=== PATIENT | male | born 2000 | race Caucasian/White ===

== ENCOUNTER 2019-08-19 17:06 | Emergency (ER) | payer OTHER ==
[~2019-08-19] VITALS: Ht 180.3 cm; Wt 77.7 kg
[2019-08-19 17:36] LABS: AMP/METHAMP Negative (Negative); BARBITURATES Negative (Negative); BENZODIAZEPINES Negative (Negative); COCAINE Negative (Negative); METHADONE Negative (Negative); OPIATES Negative (Negative); PCP Negative (Negative)
[2019-08-19 18:00] LABS: BASOPHILS 0.4 % (0.0-2.0); HEMOGLOBIN 14.6 gm/dL (14.0-18.0); MCH 31.4 pg (26.0-34.0)
[2019-08-19 18:02] LABS: ABSOLUTE NEUTROPHILS 12.5 thou/uL (1.4-8.2); EOSINOPHILS 0.5 % (0.0-3.0); HEMATOCRIT 43.5 % (42.0-52.0); LYMPHOCYTES 5.7 % (24.0-44.0); MCHC 33.5 g/dL (28.0-37.0); MCV 93.8 fL (80.0-100.0); MONOCYTES 6.6 % (1.0-8.0); POLYS 86.8 % (36.0-66.0); RBC 4.64 mil/uL (4.50-6.00); RDW 12.5 % (10.5-14.5); WBC 14.4 thou/uL (4.0-11.0)
[2019-08-19 18:06] LABS: ANION GAP 9 mmol/L (7-16); BUN 16 mg/dL (7-18); CALCIUM 9.5 mg/dL (8.5-10.1); CHLORIDE 100 mmol/L (98-107); CO2 24 mmol/L (21-32); GLUCOSE 121 mg/dL (74-106); POTASSIUM 4.7 mmol/L (3.5-5.1); SODIUM 133 mmol/L (136-145)
[2019-08-19 18:12] LABS: ALBUMIN 4.4 g/dL (3.4-5.0); SALICYLATE < 2.8 mg/dL (2.8-20.0); SGOT 33 U/L (15-37); SGPT 26 U/L (30-65); TOTAL BILIRUBIN 0.4 mg/dL (<0.1-1.0); TOTAL PROTEIN 8.1 g/dL (6.4-8.2)
[2019-08-19 18:32] LABS: PLATELET COUNT 18 thou/uL (150-400)
[2019-08-19 20:12] LABS: HEMATOCRIT 36.6 % (42.0-52.0); MCH 31.8 pg (26.0-34.0); MCHC 34.5 g/dL (28.0-37.0); MCV 92.1 fL (80.0-100.0); RBC 3.98 mil/uL (4.50-6.00); RDW 12.7 % (10.5-14.5); WBC 12.4 thou/uL (4.0-11.0)
[2019-08-19 20:13] LABS: HEMOGLOBIN 12.6 gm/dL (14.0-18.0)
[2019-08-19 20:25] VITALS: BP 120/82
--- NOTE | 2019-08-20 08:29 | EKG ---
[address] [address] ELECTROCARDIOGRAM REPORT Name: ROM LEWIS Room #: DEP CHRIS Booth#: [id number] Admission: 08/19/19 Attend Phys: Discharge: 08/19/19 Date of : 89 Report #: [id number] THIS REPORT FOR: //name// [facility] ED Test Date: 2019-08-19 Test Time: 17:08:40 Pat Name: ROM LEWIS Department: Room: Gender: [facility] 2000 Requested By: Frieda Bingham Order Number: [id number] MD: Schuyler Anderson Measurements Intervals [place] Rate: 128 P: 69 PA: 156 QRS: 63 QRSD: 108 T: 44 QT: 301 QTc: 440 Interpretive Statements Sinus tachycardia Right ventricular conduction delay No previous ECG available for comparison Electronically Signed On 08-20-2019 8:28:42 [employer]ITION[employer] by Schuyler Anderson [email or web address] <ELECTRONICALLY SIGNED> By: Schuyler Anderson MD, [facility] 08/20/19 0828 1708 1708 Schuyler Anderson MD, FACC /EPI
== END 2019-08-19 20:26 | disposition home or self-care (01) ==
LOC: ER 17:06
PROVIDERS: Nurse Practitioner
DX: K59.00 Constipation, unspecified (principal); F12.10 Cannabis abuse, uncomplicated; R10.11 Right upper quadrant pain